=== PATIENT | male | born 1990 | race Asian ===

== ENCOUNTER 2018-07-21 20:27 | Emergency (ER) | payer OTHER ==
[2018-07-21 20:31] VITALS: BP 126/71; PULSE 100; TEMP 98; BMI 22.8
[2018-07-21] MEDS ORDERED: DIPHTH,PERTUSS(ACELL),TET 0.5 ML DISP.SYRIN IM ONE (21:37)
--- NOTE | 2018-07-21 21:37 | PDOC ---
History of Present Illness - General Chief Complaint: Laceration Stated Complaint: LACERATION Time Seen by Provider: 07/21/18 20:39 History Source: Patient Exam Limitations: No Limitations - History of Present Illness Initial Comments: Patient is a 27-year-old male who states that he hit the right side of his face on a door at approximately 3:00 this afternoon. There was no loss of consciousness. His tetanus is not up-to-date. He is not and anticoagulants. He denies pain. Patient denies aggravating or relieving factors. 07/21/18 21:32 Past History - Travel Traveled outside of the country in the last 30 days: No Close contact w/someone who was outside of country & ill: No - Past Medical History Allergies/Adverse Reactions: Allergies Allergy/AdvReac Type Severity Reaction Status Date / Time No Known Allergies Allergy Verified 07/21/18 20:31 Home Medications: Ambulatory Orders No Home Medications 0 dose .ROUTE UTDICT 05/31/13 COPD: No - Suicide/Smoking/Psychosocial Hx Smoking Status: Yes Smoking History: Current every day smoker Number of Cigarettes Smoked Daily: 2 Information on smoking cessation initiated: No Review of Systems - Review of Systems Able to Perform ROS?: Yes Constitutional: No: Chills, Fever HEENTM: No: Double Vision Neurological: No: Headache, Ataxia, Dizziness All Other Systems: Reviewed and Negative *Physical Exam - Vital Signs Last Vital Signs Temp Pulse Resp BP Pulse Ox 98 F 100 H 18 126/71 98 07/21/18 20:28 07/21/18 20:28 07/21/18 20:28 07/21/18 20:28 07/21/18 20:28 - Physical Exam Comments: Constitutional: VS stated, pt appears in no apparent distress; sitting in chair. Skin: Warm and dry. Pt has a 2.5 cm vertical laceration to the right side of his eye. No signs of secondary infection, no bleeding. Head: Normocephalic; no pain upon palpation to the facial bones. Eyes: Extraocular movements intact, PERRL, conjunctiva pink without injection or discharge. Lids normal; no periorbital edema or erythema. Vision subjectively normal or at baseline. Ears: No tenderness present. Canals without injection or discharge; TM clear, no retractions or bulging. No blood behind the TMs Nose: Patent, mucosa pink. No drainage. Throat: Oropharynx with pink and moist mucosa. Lungs: Bilateral breath sounds clear upon auscultation. No adventitious breath sounds. Heart: Regular rate and rhythm, S1/S2 auscultated. No murmurs, rubs, or gallops. No visible pulsations, heaves, or lifts on precordium. Musculoskeletal: Moves all extremities without difficulty. Neurologic: Awake, alert. Conversation fluent. Normal attention. Oriented to person, place, and time. Cranial nerves 1-12 intact. Gross sensory and motor strength intact; cerebellar function normal. Steady gait noted, deep tendon reflexes within normal range. 07/21/18 21:33 Medical Decision Making - Medical Decision Making Pt gave verbal permission for me to irrigate and suture laceration. The wound was irrigated with 250 mL of normal saline. Afterwards the wound was cleansed with Betadine and anesthetized with 1.5 mL of lidocaine with good anesthetic effect. Three 6.0 polypropylene sutures were placed with good approximation. Afterwards bacitracin was applied. Patient's tetanus was updated. Patient's neuro exam was within normal limits in no pain upon palpation of facial bones. I do not feel a head or facial CT is warranted at this time. 07/21/18 21:35 *DC/Admit/Observation/Transfer Diagnosis at time of Disposition: Laceration - Discharge Dispostion Disposition: HOME Condition at time of disposition: Stable Decision to Admit order: No - Referrals - Patient Instructions Printed Discharge Instructions: DI for Laceration Repair Additional Instructions: Topical antibiotic twice daily for the next 3 days. Afterwards discontinue. Return in 7 days for suture removal. - Post Discharge Activity
== END 2018-07-21 21:46 | disposition home or self-care (01) ==
LOC: JERFT 20:27
PROC: 0HQ1XZZ Repair Face Skin, External Approach (ICD-10-PCS; principal; 2018-07-21)
PROC: 3E0234Z Introduction of Serum, Toxoid and Vaccine into Muscle, Percutaneous Approach (ICD-10-PCS; 2018-07-21)
DX: S01.81XA Laceration without foreign body of other part of head, initial encounter (principal); W22.8XXA Striking against or struck by other objects, initial encounter; Y92.89 Other specified places as the place of occurrence of the external cause; Y99.8 Other external cause status
CPT/HCPCS: 90715; 99281-25

== ENCOUNTER 2018-07-26 15:33 | Emergency (ER) | payer OTHER ==
--- NOTE | 2018-07-26 15:41 | PDOC ---
Rapid Medical Evaluation Chief Complaint: Suture/Staple Removal(Here) Time Seen by Provider: 07/26/18 15:39 Medical Evaluation: Allergies Allergy/AdvReac Type Severity Reaction Status Date / Time No Known Allergies Allergy Verified 07/21/18 20:31 07/26/18 15:40 I have performed a brief in person evaluation of the patient. The patient presents with a CC of: suture removal PE: Skin: 3 sutures on the right side of face beside right eye. No signs of secondary infection. Lungs: Clear Heart: RRR MS: Moves all extremities without difficulty Neuro: Alert and oriented Psych: Approrpriate affect I have ordered the following: nothing at this time. The patient will proceed to the [facility] for further evaluation. Discharge Disposition - Diagnosis Visit for suture removal - Referrals - Patient Instructions - Post Discharge Activity
[2018-07-26 15:43] VITALS: BP 115/66; PULSE 77; TEMP 98; BMI 22.8
--- NOTE | 2018-07-26 16:06 | PDOC ---
Suture Removal/Wound Check HPI - History of Present Illness Chief Complaint: Suture/Staple Removal(Here) Stated Complaint: SUTURE REMOVAL, SUTURED HERE Time Seen by Provider: 07/26/18 15:39 History Source: Yes: Patient Exam Limitations: Yes: No Limitations Treated at: [facility] Date of Last ED visit: 07/20/18 - Previous ED Treatment Type of procedure performed on last visit: Yes: Laceration Repair Tetanus Immunization: Yes: Up to Date Past History - Past Medical History Allergies/Adverse Reactions: Allergies Allergy/AdvReac Type Severity Reaction Status Date / Time No Known Allergies Allergy Verified 07/26/18 15:41 Home Medications: Ambulatory Orders No Home Medications 0 dose .ROUTE UTDICT 05/31/13 COPD: No - Suicide/Smoking/Psychosocial Hx Smoking Status: Yes Smoking History: Current every day smoker Number of Cigarettes Smoked Daily: 10 Information on smoking cessation initiated: No Suture Removal/Wound Check PE - Physical Exam Laceration/Wound Check Symptoms: reports: None Comments: 07/26/18 16:03 right cheek with 3 intact sutures CDI well healed *Review of Systems - Review of Systems Able to Perform ROS?: Yes Integumentary: Yes: Symptoms Reported (suture removal ) *Physical Exam - Vital Signs Last Vital Signs Temp Pulse Resp BP Pulse Ox 98 F 77 18 115/66 98 07/26/18 15:38 07/26/18 15:38 07/26/18 15:38 07/26/18 15:38 07/26/18 15:38 - Physical Exam General Appearance: Yes: Nourished, Appropriately Dressed HEENT: positive: EOMI, PHUONG Neck: positive: Supple Integumentary: positive: Other (right side face with 3 simple sutures intact CDI well healed ) Neurologic: positive: Fully Oriented, Alert, Normal Mood/Affect, Normal Response , Motor Strength 5/5 Procedures - Additional Procedures Progress: 07/26/18 16:04 3 simple interrupted sutures removed CDI well healed *DC/Admit/Observation/Transfer Diagnosis at time of Disposition: Visit for suture removal - Discharge Dispostion Disposition: HOME Condition at time of disposition: Good - Referrals - Patient Instructions Printed Discharge Instructions: DI for Suture Removal Additional Instructions: apply vitamin E oil or cocoa butter to the area 2-3 times a day protect from the sun as the scar can easily burn follow with a plastic surgeon for any concerns about healing - Post Discharge Activity
== END 2018-07-26 16:11 | disposition home or self-care (01) ==
LOC: JER 15:33 → JERFT 15:33
DX: Z48.817 Encounter for surgical aftercare following surgery on the skin and subcutaneous tissue (principal); Z48.02 Encounter for removal of sutures
CPT/HCPCS: 99281-25

== ENCOUNTER 2022-03-29 20:45 | Emergency (ER) | payer SELFPAY ==
[2022-03-29 21:12] VITALS: BP 116/72; TEMP 99.3; BMI 21.2
[2022-03-29 21:13] VITALS: PULSE 106
[2022-03-29] MEDS ORDERED: LIDOCAINE HCL 1%, 10 MG/ML (20ML VIAL) ONE (23:21)
[2022-03-29] MEDS ORDERED: CEPHALEXIN MONOHYDRATE 500 MG CAPSULE (UD) PO ONE (23:46)
[2022-03-29] MEDS ORDERED: CEPHALEXIN MONOHYDRATE 500 MG CAPSULE (UD) ONE (23:54)
== END 2022-03-30 00:06 | disposition home or self-care (01) ==
LOC: JERFT 20:45
DX: M71.311 Other bursal cyst, right shoulder (principal)
CPT/HCPCS: 76536-TC; 99284-25